=== PATIENT | female | born 1975 | race Caucasian/White ===

== ENCOUNTER 2023-05-17 13:24 | Outpatient (CLI) | payer BC ==
[2023-05-17 15:07] LABS: #Basophils 0.1 10x3/uL (0.0-0.2); #Monocytes 0.6 10x3/uL (0.0-1.1); #Neutrophils 4.9 10x3/uL (1.5-8.4); %Basophils 0.8 % (0.0-2.0); %Eosinophils 0.5 % (0.0-6.0); %Lymphocytes 31.4 % (18.0-47.0); %Monocytes 7.7 % (0.0-10.0); %Neutrophils 59.2 % (40.0-75.0); Hematocrit 40.7 % (34.9-44.5); Hemoglobin 12.6 g/dL (12.0-15.5); Mean Corpuscular Hemoglobin 25.5 pg (27.0-33.0); Mean Corpuscular Volume 82.2 fl (81.6-98.3); Mean Platelet Volume 9.5 fl (7.4-10.4); Platelet Count 398 10x3/uL (150-450); RBC Distribution Width 14.8 % (11.5-14.5); Red Blood Cell (RBC) Count 4.95 10x6/uL (3.90-5.03); White Blood Cell (WBC) Count 8.3 10x3/uL (3.5-10.5)
[2023-05-17 15:21] LABS: ALT (SGPT) 23 U/L (8-55); AST (SGOT) 18 U/L (5-34); Albumin 4.8 g/dL (3.5-5.0); Alkaline Phosphatase 58 U/L (40-110); Anion Gap 16 mmol/L (10-20); BUN (Urea Nitrogen) 24 mg/dL (7.0-18.7); Bilirubin, Direct 0.3 mg/dL (0.1-0.3); Bilirubin, Total 0.9 mg/dL (0.2-1.2); Calc. Creatinine Clearance 0 mL/min (70-130); Calcium 10.2 mg/dL (7.8-10.44); Carbon Dioxide 23 mmol/L (22-29); Chloride 103 mmol/L (98-107); Estimated GFR 76; Globulin 3.2 g/dL (2.4-3.5); Glucose 123 mg/dL (70-105); Potassium 4.5 mmol/L (3.5-5.1); Sodium 137 mmol/L (136-145)
== END 2023-05-17 13:25 | disposition home or self-care (01) ==
LOC: LABBT 13:24
PROVIDERS: ATTEND Surgery
DX: Z01.818 Encounter for other preprocedural examination (principal); K21.00 Gastro-esophageal reflux disease with esophagitis, without bleeding; K22.10 Ulcer of esophagus without bleeding
CPT/HCPCS: 71046; 80053; 80076; 85025; 93005; 93010

== ENCOUNTER 2023-05-17 13:30 | Inpatient (IN) | payer BC ==
[2023-05-17 13:51] VITALS: BMI 38.7
[2023-05-23] MEDS ORDERED: Heparin 5,000 UNITS/ML VIAL ONE (06:37)
[2023-05-23] MEDS ORDERED: LevoFLOXacin 500 mg/D5W 100 ML BAG ONE (06:37)
[2023-05-23] MEDS ORDERED: EPINEPHrine 1 MG/ML VIAL ONE (06:47)
[2023-05-23] MEDS ORDERED: Bupivacaine 0.25% HCL 30 ML VIAL ONE ×2 (06:48→08:14)
[2023-05-23] MEDS ORDERED: SUGAMMADEX SODIUM 200 MG/2 ML VIAL ONE (07:01)
[2023-05-23] MEDS ORDERED: Rocuronium Bromide 10 MG/ML (10ML VIAL) ONE ×2 (07:01→07:30)
[2023-05-23] MEDS ORDERED: Ondansetron PF 4 MG/2 ML Vial ONE ×3 (07:01→10:50)
[2023-05-23] MEDS ORDERED: PROPOFOL 20 ML ONE (07:01)
[2023-05-23] MEDS ORDERED: fentaNYL PF 100 MCG/2 ML SYRINGE ONE ×2 (07:01→09:53)
[2023-05-23] MEDS ORDERED: Dexamethasone 4 mg/ml Vial ONE (07:01)
[2023-05-23] MEDS ORDERED: Lidocaine 1% PF 5 ML VIAL ONE ×2 (07:01→07:30)
[2023-05-23] MEDS ORDERED: Midazolam HCl 2 mg/2 ml Vial ONE (07:10)
[2023-05-23] MEDS ORDERED: Dexamethasone 20 MG/5 ML VIAL ONE (07:30)
[2023-05-23] MEDS ORDERED: PROPOFOL 200 MG/20 ML VIAL ONE (07:30)
[2023-05-23] MEDS ORDERED: PHENYLEPHRINE-NS 100 MCG/ML 10 ML SYRINGE ONE ×3 (07:30→10:59)
[2023-05-23] MEDS ORDERED: ePHEDrine Sulfate 50 MG/10 ML VIAL ONE ×2 (07:30→07:59)
[2023-05-23] MEDS ORDERED: Glucagon 1 MG/ML KIT IM PRN (09:56)
[2023-05-23] MEDS ORDERED: diphenhydrAMINE 50 MG/ML VIAL IVP PRN ×2 (09:56→10:29)
[2023-05-23] MEDS ORDERED: Hydrocodone-Acetamin 15 ML UDCUP PO PRN (09:56)
[2023-05-23] MEDS ORDERED: Ondansetron PF 4 MG/2 ML Vial IVP PRN (09:56)
[2023-05-23] MEDS ORDERED: Dextrose 5% in Water 1,000 ML IV PRN (09:56)
[2023-05-23] MEDS ORDERED: Promethazine HCl 25 MG/ML VIAL IM PRN ×2 (09:56→10:29)
[2023-05-23] MEDS ORDERED: Ipratropium/Albuterol 3 ML NEB NEB PRN (09:56)
[2023-05-23] MEDS ORDERED: hydrALAZINE 20 MG/ML VIAL SLOW IVP PRN (09:56)
[2023-05-23] MEDS ORDERED: Dextrose 50% Abboject 50 ML SYRINGE SLOW IVP PRN (09:56)
[2023-05-23] MEDS ORDERED: 1/2 NS w/KCL 20 mEq 1,000 ML IV SCH (10:00)
[2023-05-23] MEDS ORDERED: fentaNYL 50 mcg/mL 1 mL Vial ONE ×3 (10:16→11:06)
[2023-05-23] MEDS ORDERED: diphenhydrAMINE 25 MG CAP PO PRN (10:29)
[2023-05-23] MEDS ORDERED: HYDROmorphone/PF 10 MG in Sodium Chloride 0.9% 99 ML IV PRN (10:29)
[2023-05-23] MEDS ORDERED: Naloxone HCl 0.4 mg/ml Vial IV PRN (10:29)
[2023-05-23] MEDS ORDERED: diphenhydrAMINE 50 MG/ML VIAL IM PRN (10:29)
[2023-05-23] MEDS ORDERED: Communication Order-Pharmacy FS SCH (10:30)
[2023-05-23] MEDS ORDERED: HYDROmorphone 0.5 MG/0.5 ML SYRINGE ONE (10:44)
[2023-05-23] MEDS: Ketorolac Tromethamine 30 MG/ML VIAL IVP SCH ×3 (12:50→23:51)
[2023-05-23] MEDS: Ondansetron PF 4 MG/2 ML Vial IVP PRN ×2 (13:09→23:54)
[2023-05-24] MEDS: Ketorolac Tromethamine 30 MG/ML VIAL IVP SCH ×3 (05:22→17:56)
[2023-05-24 07:45] LABS: #Eosinphils 0.1 thou/uL (0.0-0.7); #Monocytes 0.8 thou/uL (0.11-0.59); #Neutrophils 8.2 thou/uL (1.40-6.50); %Basophils 0.3 % (0.0-1.0); %Eosinophils 0.9 % (0.0-10.0); %Monocytes 7.8 % (0.0-10.0); %Neutrophils 80.6 % (42.0-75.0); Hemoglobin 10.4 g/dL (12.0-16.0); Mean Corpuscular HGB CONC 30.6 g/dL (32.0-36.0); Mean Corpuscular Hemoglobin 26.1 pg (27.0-31.0); Mean Corpuscular Volume 85.2 fl (78.0-98.0); Platelet Count 257 10x3/uL (130-400); Red Blood Cell (RBC) Count 3.99 mill/uL (4.20-5.40); White Blood Cell (WBC) Count 10.2 10x3/uL (4.8-10.8)
[2023-05-24 08:09] LABS: Anion Gap 11 mmol/L (10-20); BUN (Urea Nitrogen) 13 mg/dL (7.0-18.7); Calc. Creatinine Clearance 152 mL/min (70-130); Calcium 8.4 mg/dL (7.8-10.44); Carbon Dioxide 25 mmol/L (22-29); Chloride 98 mmol/L (98-107); Estimated GFR 99; Glucose 114 mg/dL (70-105); Potassium 4.1 mmol/L (3.5-5.1); Sodium 130 mmol/L (136-145)
[2023-05-24] MEDS: Pantoprazole 40 MG VIAL IVP SCH (09:04)
[2023-05-24] MEDS ORDERED: Iopamidol-370 76% 500 ML MDV (1 ML CHARGE) ONE (11:23)
[2023-05-24] MEDS ORDERED: Acetaminophen 650 MG Suppository PR PRN (12:29)
[2023-05-24] MEDS: Hydrocodone-Acetamin 15 ML UDCUP PO PRN ×3 (14:07→21:48)
[2023-05-24] MEDS ORDERED: Sodium Chloride 0.9% 500 ML IV SCH (16:45)
[2023-05-25] MEDS: Ketorolac Tromethamine 30 MG/ML VIAL IVP SCH ×2 (00:04→05:16)
[2023-05-25] MEDS: Hydrocodone-Acetamin 15 ML UDCUP PO PRN ×2 (03:25→10:01)
[2023-05-25 04:26] LABS: #Eosinphils 0.3 thou/uL (0.0-0.7); #Monocytes 0.9 thou/uL (0.11-0.59); %Basophils 0.3 % (0.0-1.0); %Eosinophils 2.4 % (0.0-10.0); %Lymphocytes 10.8 % (21.0-51.0); %Monocytes 8.5 % (0.0-10.0); %Neutrophils 77.4 % (42.0-75.0); Hematocrit 30.9 % (36.0-47.0); Hemoglobin 9.8 g/dL (12.0-16.0); Mean Corpuscular HGB CONC 31.7 g/dL (32.0-36.0); Mean Corpuscular Hemoglobin 26.4 pg (27.0-31.0); Mean Corpuscular Volume 83.3 fl (78.0-98.0); Mean Platelet Volume 9.9 fL (7.4-10.4); Platelet Count 222 10x3/uL (130-400); RBC Distribution Width 16.5 % (11.5-14.5); Red Blood Cell (RBC) Count 3.71 mill/uL (4.20-5.40); White Blood Cell (WBC) Count 10.3 10x3/uL (4.8-10.8)
[2023-05-25 04:48] LABS: Anion Gap 10 mmol/L (10-20); BUN (Urea Nitrogen) 10 mg/dL (7.0-18.7); Calc. Creatinine Clearance 142 mL/min (70-130); Calcium 8.2 mg/dL (7.8-10.44); Carbon Dioxide 25 mmol/L (22-29); Chloride 99 mmol/L (98-107); Estimated GFR 91; Glucose 157 mg/dL (70-105); Potassium 4.1 mmol/L (3.5-5.1); Sodium 130 mmol/L (136-145)
[2023-05-25] MEDS ORDERED: LevoFLOXacin 750 mg/D5W 750 MG in Premix 1 BAG IVPB SCH (06:00)
[2023-05-25] MEDS: Pantoprazole 40 MG VIAL IVP SCH (09:47)
[2023-05-25 11:26] VITALS: BP 91/63; TEMP 97.3
== END 2023-05-25 11:50 | disposition home or self-care (01) | DRG 327 ==
LOC: SURG A 05-23 06:10 → SJJU 05-23 12:24
PROVIDERS: ADMIT Surgery; ATTEND Surgery
PROC: 0D164ZA Bypass Stomach to Jejunum, Percutaneous Endoscopic Approach (ICD-10-PCS; principal; 2023-05-23)
PROC: 8E0W4CZ Robotic Assisted Procedure of Trunk Region, Percutaneous Endoscopic Approach (ICD-10-PCS; 2023-05-23)
PROC: 3E033XZ Introduction of Vasopressor into Peripheral Vein, Percutaneous Approach (ICD-10-PCS; 2023-05-23)
DX: K44.9 Diaphragmatic hernia without obstruction or gangrene (principal); J95.89 Other postprocedural complications and disorders of respiratory system, not elsewhere classified; K22.10 Ulcer of esophagus without bleeding; J98.11 Atelectasis; E11.9 Type 2 diabetes mellitus without complications; F41.9 Anxiety disorder, unspecified; K21.9 Gastro-esophageal reflux disease without esophagitis; Z79.899 Other long term (current) drug therapy; Z98.890 Other specified postprocedural states; Z87.891 Personal history of nicotine dependence; Z83.3 Family history of diabetes mellitus; Z82.49 Family history of ischemic heart disease and other diseases of the circulatory system; Z88.2 Allergy status to sulfonamides; Z88.0 Allergy status to penicillin
CPT/HCPCS: 36415; 71045; 74177; 80048; 85025; 87040; 87086; C9113; J0171; J1100; J1170; J1644; J1650; J1885; J1956; J2250; J2405; J2704; J3010; J3480; J3490; J7030; Q9967; S0020

== ENCOUNTER 2023-08-22 07:22 | Outpatient (CLI) | payer BC | END 2023-08-22 07:23 | disposition home or self-care (01) | LOC: CT 07:22 | PROVIDERS: ATTEND Surgery | DX: R74.01 Elevation of levels of liver transaminase levels (principal); R93.2 Abnormal findings on diagnostic imaging of liver and biliary tract | CPT/HCPCS: 74160 ==